=== PATIENT | male | born 1950 | race Hispanic/Latino ===

== ENCOUNTER → 2018-09-20 | Outpatient (CLI) | payer MEDICARE | END | disposition home or self-care (01) | LOC: SHCH 16:01 | PROVIDERS: ATTEND Internal Medicine Cardiovascular Disease | DX: I25.5 Ischemic cardiomyopathy (principal) | CPT/HCPCS: 93306 ==

== ENCOUNTER 2018-11-11 09:46 | Observation (INO) | payer MEDICARE ==
[2018-11-09 16:14] LABS: BASOPHILS % (AUTO) 0.2 % (0.0-5.0); EOSINOPHILS % (AUTO) 1.1 % (0.0-8.0); HEMATOCRIT 41.1 % (42-54); LYMPHOCYTES % (AUTO) 21.4 % (21.0-51.0); MEAN CORPUSCULAR HEMOGLOBIN 29.3 pg (27.0-33.0); MEAN CORPUSCULAR HGB CONC 32.5 g/dL (32.0-36.0); MEAN CORPUSCULAR VOLUME 90.4 fL (79-99); MONOCYTES % (AUTO) 10.1 % (3.0-13.0); NEUTROPHILS % (AUTO) 67.2 % (40.0-77.0); PLATELET COUNT (AUTO) 126 K/uL (130-400); RED BLOOD CELL COUNT(AUTO) 4.55 MIL/uL (4.50-6.20); RED CELL DISTRIBUTION WIDTH 14.3 % (11.0-15.5); WHITE BLOOD COUNT (AUTO) 3.7 K/uL (4.8-10.8)
[2018-11-09 16:23] LABS: CREATININE 1.4 mg/dL (0.5-1.5); POTASSIUM 3.8 mmol/L (3.5-5.1)
[2018-11-09 16:28] LABS: INR 1.19 (0.85-1.15); PARTIAL THROMBOPLASTIN TIME 27.1 SEC (26.3-35.5); PROTHROMBIN TIME 12.5 SEC (9.6-11.6)
[~2018-11-11] VITALS: Ht 170.2 cm; Wt 79.0 kg
[2018-11-11] VITALS (11 sets, daily range): BP systolic 132–155; BP diastolic 86–96
[~2018-11-11 09:46] MED LIST: AMIO200T5 PO; APIX5TAB PO; ATOR20TA65 PO; CARV6.25 PO; CEFAZOLIN SODIUM 1 GM VIAL IVP SCH; CLOP75TA14 PO; FAMO20TA8 PO; FURO20TA4 PO; GLIP1TAB6 PO; LOSA50TA64 PO; SODIUM CHLORIDE 0.9% 1000ML 1,000 ML IV SCH
--- NOTE | 2018-11-11 11:46 | NUR ---
PT PERSONAL BELONGINGS, CLOTHING AND MEDICATION WILL STAY WITH .
[2018-11-11] MEDS ORDERED: BUPIVACAINE/PF 0.25% 30ML VIAL IJ ONE (13:09)
[2018-11-11] MEDS ORDERED: LIDOCAINE HCL 1% MDV 50ML VIAL ONE (13:10)
[2018-11-11] MEDS ORDERED: CEFAZOLIN SODIUM 1 GM VIAL ONE ×2 (13:10→13:11)
[2018-11-11] MEDS ORDERED: MEPERIDINE-PF 25 MG/ML SYG ONE ×2 (13:10→13:41)
[2018-11-11] MEDS ORDERED: MIDAZOLAM HCL 1 MG/ML 2ML VIAL ONE ×2 (13:10→13:41)
[2018-11-11] MEDS ORDERED: IOHEXOL-350 75 ML VIAL IV ONE (13:47)
[2018-11-11] MEDS ORDERED: ACETAMINOPHEN 325 MG TAB PO PRN (15:00)
[2018-11-11] MEDS ORDERED: TEMAZEPAM 30 MG CAP PO PRN (15:00)
[2018-11-11] MEDS ORDERED: ONDANSETRON HCL 4 MG/2 ML VIAL IV PRN (15:00)
[2018-11-11] MEDS ORDERED: ACETAMINOPHEN-CODEINE 300/30MG TAB PO PRN ×2 (15:00)
--- NOTE | 2018-11-11 15:10 | NUR ---
SITE CHECK SITE CHECK TO LEFT UPPER CHEST. PRESSURE DRSG DRY. SLING IN PLACE.
--- NOTE | 2018-11-11 15:10 | NUR ---
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 PRESSURE DRSG TO LEFT UPPER CHEST DRY AND INTACT. SOFT TO TOUCH. SLING IN PLACE TO LEFT ARM. PT INSTRUCTED ON BEING ON BEDREST. PT VERBALIZED UNDERSTANDING.
--- NOTE | 2018-11-11 15:20 | NUR ---
GLUCOSE GLUCOSE CHECK OF 69. ASYMPTOMATIC. DRANK 2 ORANGE JUICES. WILL ORDER TRAY.
--- NOTE | 2018-11-11 15:25 | NUR ---
SITE CHECK SITE CHECK TO LEFT UPPER CHEST. PRESSURE DRSG DRY. SLING IN PLACE.
--- NOTE | 2018-11-11 15:35 | NUR ---
TRANSFER PT TRANSFERRED TO ROOM 230 VIA BED. REPORT GIVEN TO REVA WYNNE.
[2018-11-11] MEDS: GLIPIZIDE 5 MG TABLET PO SCH (20:27)
[2018-11-11] MEDS: FUROSEMIDE 20 MG TABLET PO SCH (20:27)
[2018-11-11] MEDS: CARVEDILOL 6.25 MG TABLET PO SCH (20:29)
[2018-11-11] MEDS: METFORMIN HCL 500 MG TABLET PO SCH (20:29)
[2018-11-11] MEDS: FAMOTIDINE 20MG TAB 20 MG TAB PO SCH (20:29)
[2018-11-11] MEDS: INSULIN HUMULIN R 100 UNIT/ML 3ML SQ SCH (21:00)
[2018-11-11] MEDS ORDERED: LOSARTAN 50 MG TABLET PO SCH (21:00)
[2018-11-12 04:00] VITALS: BP 121/79
[2018-11-12] MEDS: INSULIN HUMULIN R 100 UNIT/ML 3ML SQ SCH ×2 (07:07→11:29)
[2018-11-12 07:35] VITALS: BP 132/86
[2018-11-12] MEDS ORDERED: ATORVASTATIN CALCIUM 20 MG TABLET PO SCH (09:00)
[2018-11-12] MEDS ORDERED: AMIODARONE HCL 200 MG TABLET PO SCH (09:00)
[2018-11-12] MEDS ORDERED: CLOPIDOGREL BISULFATE 75 MG TAB PO SCH (09:00)
[2018-11-12] MEDS: FUROSEMIDE 20 MG TABLET PO SCH (09:21)
[2018-11-12] MEDS: GLIPIZIDE 5 MG TABLET PO SCH (09:22)
[2018-11-12] MEDS: FAMOTIDINE 20MG TAB 20 MG TAB PO SCH (09:22)
[2018-11-12] MEDS: METFORMIN HCL 500 MG TABLET PO SCH (09:22)
[2018-11-12] MEDS: CARVEDILOL 6.25 MG TABLET PO SCH (09:22)
[2018-11-12 10:50] VITALS: BP 122/77
[2018-11-12] MEDS ORDERED: FURO40TA5 PO (11:19)
[2018-11-12] MEDS ORDERED: FUROSEMIDE 40 MG TABLET PO SCH (11:45)
== END 2018-11-12 14:00 | disposition home or self-care (01) ==
LOC: DAH 09:46 → DAHIP 09:47 → DAH 09:47 → 2AH 15:49
PROVIDERS: ADMIT Internal Medicine; ATTEND Internal Medicine
DX: I11.0 Hypertensive heart disease with heart failure (principal); E11.9 Type 2 diabetes mellitus without complications; E78.5 Hyperlipidemia, unspecified; I21.9 Acute myocardial infarction, unspecified; I25.10 Atherosclerotic heart disease of native coronary artery without angina pectoris; I25.2 Old myocardial infarction; I25.5 Ischemic cardiomyopathy; I48.0 Paroxysmal atrial fibrillation; I50.33 Acute on chronic diastolic (congestive) heart failure; Z95.5 Presence of coronary angioplasty implant and graft; Z95.810 Presence of automatic (implantable) cardiac defibrillator; Z79.02 Long term (current) use of antithrombotics/antiplatelets; Z79.01 Long term (current) use of anticoagulants
CPT/HCPCS: 33249; 36415; 71045; 80048; 82948 ×6; 85025; 85610; 85730; A4606; C1721; C1895 ×2; G0378 ×28; J0690 ×2; J2175 ×2; J2250 ×2; J3490 ×2; J7030; Q9967; 99156; 99157

== ENCOUNTER → 2019-01-20 | Outpatient (CLI) | payer MEDICARE ==
[~2019-01-20] MED LIST changes: -CEFAZOLIN SODIUM 1 GM VIAL IVP SCH; -FURO20TA4 PO; +FURO40TA5 PO; -SODIUM CHLORIDE 0.9% 1000ML 1,000 ML IV SCH
== END | disposition home or self-care (01) ==
LOC: SHCH 10:57
PROVIDERS: ATTEND Internal Medicine Cardiovascular Disease
DX: I50.23 Acute on chronic systolic (congestive) heart failure (principal); E78.5 Hyperlipidemia, unspecified; E11.9 Type 2 diabetes mellitus without complications; I48.0 Paroxysmal atrial fibrillation; Z79.899 Other long term (current) drug therapy
CPT/HCPCS: 93971

== ENCOUNTER → 2019-05-25 | Outpatient (CLI) | payer MEDICARE | END | disposition home or self-care (01) | LOC: SHCH 11:22 | PROVIDERS: ATTEND Internal Medicine Cardiovascular Disease | DX: I70.291 Other atherosclerosis of native arteries of extremities, right leg (principal); I87.2 Venous insufficiency (chronic) (peripheral) | CPT/HCPCS: 93925; 93970 ==

== ENCOUNTER → 2023-01-06 | Outpatient (CLI) | payer MEDICARE ==
[~2023-01-06] MED LIST changes: -AMIO200T5 PO; +AMIO200T68 PO; +CLOP-31 PO; -CLOP75TA14 PO
[2023-01-06 16:19] LABS: BASOPHILS % (AUTO) 0.2 % (0.0-5.0); EOSINOPHILS % (AUTO) 1.4 % (0.0-8.0); HEMATOCRIT 45.6 % (42-54); LYMPHOCYTES % (AUTO) 18.8 % (21.0-51.0); MEAN CORPUSCULAR HGB CONC 31.6 g/dL (32.0-36.0); NEUTROPHILS % (AUTO) 70.4 % (40.0-77.0); PLATELET COUNT (AUTO) 107 K/uL (130-400)
[2023-01-06 16:29] LABS: CREATININE 1.6 mg/dL (0.5-1.5); POTASSIUM 5.5 mmol/L (3.5-5.1)
[2023-01-06 16:34] LABS: ALBUMIN 4.3 g/dL (3.5-5.0); TOTAL PROTEIN, SERUM 7.6 g/dL (6.0-8.3)
== END | disposition home or self-care (01) ==
LOC: LAB 14:11
PROVIDERS: ATTEND Internal Medicine Cardiovascular Disease
DX: I11.0 Hypertensive heart disease with heart failure (principal); I21.09 ST elevation (STEMI) myocardial infarction involving other coronary artery of anterior wall; I25.10 Atherosclerotic heart disease of native coronary artery without angina pectoris; I50.21 Acute systolic (congestive) heart failure
CPT/HCPCS: 36415; 80053; 83735; 83880; 85025

== ENCOUNTER → 2023-03-29 | Outpatient (CLI) | payer MEDICARE ==
[2023-03-29 16:21] LABS: BASOPHILS % (AUTO) 0.2 % (0.0-5.0); EOSINOPHILS % (AUTO) 1.8 % (0.0-8.0); HEMATOCRIT 46.9 % (42-54); LYMPHOCYTES % (AUTO) 22.7 % (21.0-51.0); MEAN CORPUSCULAR HEMOGLOBIN 30.1 pg (27.0-33.0); MEAN CORPUSCULAR HGB CONC 31.8 g/dL (32.0-36.0); MEAN CORPUSCULAR VOLUME 94.7 fL (79-99); MONOCYTES % (AUTO) 8.3 % (3.0-13.0); NEUTROPHILS % (AUTO) 66.6 % (40.0-77.0); PLATELET COUNT (AUTO) 122 K/uL (130-400); RED BLOOD CELL COUNT(AUTO) 4.95 MIL/uL (4.50-6.20); RED CELL DISTRIBUTION WIDTH 14.3 % (11.0-15.5); WHITE BLOOD COUNT (AUTO) 5.7 K/uL (4.8-10.8)
[2023-03-29 16:53] LABS: ALBUMIN 4.1 g/dL (3.5-5.0); CREATININE 1.5 mg/dL (0.5-1.5); MAGNESIUM 1.7 mg/dL (1.80-2.40); POTASSIUM 4.4 mmol/L (3.5-5.1); THYROID STIMULATING HORMONE 11.74 uIU/mL (0.36-3.74); TOTAL PROTEIN, SERUM 7.9 g/dL (6.0-8.3)
== END | disposition home or self-care (01) ==
LOC: LAB 13:48
PROVIDERS: ATTEND Internal Medicine Cardiovascular Disease
DX: I25.5 Ischemic cardiomyopathy (principal); I50.22 Chronic systolic (congestive) heart failure
CPT/HCPCS: 36415; 80053; 83735; 83880; 84439; 84443; 85025